=== PATIENT | male | born 2000 | race African-American/Black ===

== ENCOUNTER 2022-03-10 03:43 | Emergency (ER) | payer SELFPAY ==
[~2022-03-10] VITALS: Ht 190.5 cm; Wt 130.2 kg
[2022-03-10 03:47] VITALS: BP 182/90
--- NOTE | 2022-03-10 03:47 | NUR ---
Patient taken to bed 9.
--- NOTE | 2022-03-10 03:48 | NUR ---
Dr. Miner examining patient.
[2022-03-10 03:50] VITALS: BP 182/90
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
[2022-03-10] MEDS ORDERED: LIDOCAINE/EPI 2% 1:100000 20 ML VIAL INJ ONE (04:00)
--- NOTE | 2022-03-10 04:12 | NUR ---
Patient has a 8 cm laceration to left facial. Dr. Miner applied sutures using sterile technique. Edges well approximated. Site cleansed with . No bleeding noted. Pt tolerated well.
--- NOTE | 2022-03-10 05:02 | NUR ---
Patient discharged with v/s stable. Written and verbal after care instructions given and explained. Patient verbalized understanding. Ambulatory with steady gait. All questions addressed prior to discharge. Advised to follow up with PMD.
== END 2022-03-10 05:10 | disposition home or self-care (01) ==
LOC: MED 03:43
DX: S01.412A Laceration without foreign body of left cheek and temporomandibular area, initial encounter (principal); X58.XXXA Exposure to other specified factors, initial encounter; Y93.89 Activity, other specified; Y92.89 Other specified places as the place of occurrence of the external cause; Y99.8 Other external cause status
CPT/HCPCS: 12014; 90471; 90715; 99283; J2001